=== PATIENT | female | born 1945 ===

== ENCOUNTER 2017-05-24 15:50 | Inpatient (IN) | payer OTHER ==
[~2017-05-24] VITALS: Ht 167.6 cm; Wt 180.0 kg
[~2017-05-24 15:50] MED LIST changes: -INTEGRA PLUS C1 EACH PO; -PROTONIX40 MG PO
[2017-05-29] MEDS ORDERED: INTEGRA PLUS C1 EACH PO (15:50)
[2017-05-29] MEDS ORDERED: PROTONIX40 MG PO (15:51)
== END 2017-05-29 17:51 | disposition home or self-care (01) | DRG 810 ==
LOC: ER 15:50 → SURH 19:08
PROC: 8E0ZXY6 Isolation (ICD-10-PCS; principal; 2017-05-24)
DX: D61.810 Antineoplastic chemotherapy induced pancytopenia (principal); T45.1X5A Adverse effect of antineoplastic and immunosuppressive drugs, initial encounter; C50.912 Malignant neoplasm of unspecified site of left female breast; D51.3 Other dietary vitamin B12 deficiency anemia; R50.81 Fever presenting with conditions classified elsewhere

== ENCOUNTER → 2017-05-24 | Outpatient (CLI) | payer OTHER ==
[~2017-05-24] MED LIST: INTEGRA PLUS C1 EACH PO; MILLIPRED5 MG; PROTONIX20 MG; PROTONIX40 MG PO; ZETIA10 MG; ZOCOR40 MG
== END | disposition home or self-care (01) ==
LOC: PPHC 11:56
DX: R53.81 Other malaise (principal); R53.83 Other fatigue